=== PATIENT | female | born 1980 | race Caucasian/White ===

== ENCOUNTER 2017-06-30 12:51 | Outpatient (CLI) | payer OTHER ==
[~2017-06-30] VITALS: Ht 170.2 cm; Wt 122.5 kg
[~2017-06-30 12:51] MED LIST: CETI10TA PO; DICY1CAP8 PO; DRIS50002 PO; LEVO175T2 PO; OMEP20CA3 PO; SPIR50TA2 PO; TRINTAB3 PO; VITA500046 PO
[2017-06-30] MEDS ORDERED: NS 1,000 ML IV ONE (13:00)
[2017-06-30] MEDS ORDERED: PROPOFOL 200 MG/20 ML VIAL As Ordered ONE (14:05)
[2017-06-30] MEDS ORDERED: LIDOCAINE 2% INJ 100 MG/5 ML SDV (FOR ANES.) As Ordered ONE (14:05)
--- NOTE | 2017-06-30 14:13 | ROOR ---
Patient Name: Jyothi Munoz Procedure Date: 06/30/2017 1:50 PM Date of : 1980 Age: 36 Room: [facility] Gender: Female Note Status: Finalized Procedure: Colonoscopy Indications: Abdominal pain in the left lower quadrant, Clinically significant diarrhea of unexplained origin Providers: DO Олег Cueva MD: Monik Franco Requesting Provider: Medicines: Propofol per Anesthesia Complications: No immediate complications. Procedure: Pre-Anesthesia Assessment: - Prior to the procedure, a History and Physical was performed, and patient medications and allergies were reviewed. The patient is competent. The risks and benefits of the procedure and the sedation options and risks were discussed with the patient. All questions were answered and informed consent was obtained. Patient identification and proposed procedure were verified by the physician, the nurse, the anesthesiologist and the registered diet technician in the endoscopy suite. Mental Status Examination: alert and oriented. Airway Examination: normal oropharyngeal airway and neck mobility. Respiratory Examination: clear to auscultation. CV Examination: normal. Prophylactic Antibiotics: The patient does not require prophylactic antibiotics. Prior Anticoagulants: The patient has taken no previous anticoagulant or antiplatelet agents. ASA Grade Assessment: II - A patient with mild systemic disease. After reviewing the risks and benefits, the patient was deemed in satisfactory condition to undergo the procedure. The anesthesia plan was to use monitored anesthesia care (MAC). Immediately prior to administration of medications, the patient was re-assessed for adequacy to receive sedatives. The heart rate, respiratory rate, oxygen saturations, blood pressure, adequacy of pulmonary ventilation, and response to care were monitored throughout the procedure. The physical status of the patient was re-assessed after the procedure. The Colonoscope was introduced through the anus and advanced to the cecum, identified by appendiceal orifice and ileocecal valve. The colonoscopy was performed without difficulty. The patient tolerated the procedure well. Findings: The entire examined colon appeared normal on direct and retroflexion views. Biopsies for histology were taken with a cold forceps from the sigmoid colon for evaluation of microscopic colitis. Impression: - The entire examined colon is normal on direct and retroflexion views. - No specimens collected. Recommendation: - Patient has a contact number available for emergencies. The signs and symptoms of potential delayed complications were discussed with the patient. Return to normal activities tomorrow. Written discharge instructions were provided to the patient. - Telephone my office for pathology results in 1 week. - Repeat colonoscopy at age 52 for screening purposes. James Whipple DO 06/30/2017 2:13:07 PM This report has been signed electronically. Number of Addenda: 0 Note Initiated On: 06/30/2017 1:50 PM Estimated Blood Loss: Estimated blood loss was minimal. Estimated blood loss was minimal.
[2017-06-30 14:49] VITALS: BP 136/83
== END 2017-06-30 14:51 | disposition home or self-care (01) ==
LOC: M OPP 12:51
PROVIDERS: ATTEND Surgery
DX: R10.32 Left lower quadrant pain (principal); R19.7 Diarrhea, unspecified; E03.9 Hypothyroidism, unspecified; R12 Heartburn; R11.10 Vomiting, unspecified; R63.0 Anorexia; K21.9 Gastro-esophageal reflux disease without esophagitis; E55.9 Vitamin D deficiency, unspecified; Z88.2 Allergy status to sulfonamides; Z79.899 Other long term (current) drug therapy; Z80.1 Family history of malignant neoplasm of trachea, bronchus and lung

== ENCOUNTER 2018-04-16 09:20 | Emergency (ER) | payer OTHER ==
[2018-04-16 12:06] LABS: HCG, SERUM QUANTITATIVE 2627 MIU/ML
[2018-04-16] MEDS: METHOTREXATE 50MG/2ML VIAL (J9260 PER 50MG) IM (14:04)
== END 2018-04-16 15:13 | disposition home or self-care (01) ==
LOC: M ED 09:20
DX: O00.91 Unspecified ectopic pregnancy with intrauterine pregnancy (principal); O99.280 Endocrine, nutritional and metabolic diseases complicating pregnancy, unspecified trimester; E03.9 Hypothyroidism, unspecified; O99.210 Obesity complicating pregnancy, unspecified trimester; Z3A.00 Weeks of gestation of pregnancy not specified; Z87.42 Personal history of other diseases of the female genital tract; Z98.890 Other specified postprocedural states; Z88.1 Allergy status to other antibiotic agents; Z88.2 Allergy status to sulfonamides
CPT/HCPCS: J9260

== ENCOUNTER → 2021-03-10 | Outpatient (REF) | payer BC ==
[~2021-03-10] MED LIST changes: -DRIS50002 PO; +DRIS50003 PO; +OMEP1CAP73 PO; -OMEP20CA3 PO; -SPIR50TA2 PO; +SPIR50TA4 PO; +TRINTAB PO; -TRINTAB3 PO
== END ==
LOC: M PLALAB 08:34
PROVIDERS: ATTEND Obstetrics & Gynecology
DX: O99.211 Obesity complicating pregnancy, first trimester (principal)

== ENCOUNTER → 2021-03-13 | Outpatient (CLI) | payer BC ==
[2021-03-13 10:28] LABS: HEMOGLOBIN 12.4 g/dl (12.0-15.5); MEAN CORPUSCULAR HEMOGLOBIN 24.7 pg (27.0-33.0); MEAN CORPUSCULAR VOLUME 79.7 fl (80.0-96.0); PLATELET COUNT, AUTOMATED 237 10^3/uL (150-450); RED BLOOD COUNT 5.02 10^6/uL (4.00-5.40); WHITE BLOOD COUNT 7.5 10^3/uL (4.0-10.0)
[2021-03-13 12:05] LABS: CHLAMYDIA DNA AMPLIFICATION NEGATIVE (NEGATIVE); GC DNA AMPLIFICATION NEGATIVE (NEGATIVE)
[2021-03-13 13:16] LABS: HEPATITIS C VIRUS ABY INDEX < 0.0 INDEX (<0.8)
[2021-03-14 10:48] LABS: HIV 1&2 SCREEN CENTAUR NEGATIVE (NEGATIVE)
== END ==
LOC: M PLALAB 08:03
PROVIDERS: ATTEND Obstetrics & Gynecology
DX: O99.211 Obesity complicating pregnancy, first trimester (principal)

== ENCOUNTER → 2021-04-16 | Outpatient (CLI) | payer MEDICAID ==
--- NOTE | 2021-04-16 10:49 | REP ---
INDICATION: ANATOMY COMPARISON: None. TECHNIQUE: Transabdominal obstetrical ultrasound with color Doppler evaluation. FINDINGS: Examination demonstrates a single live intrauterine in cephalic presentation. motion is identified by technologist. Placenta is noted anterior and grade 1 without evidence for placenta previa or abruption. Amniotic fluid volume is normal. Cervix measures 3.3 cm in length and appears closed.. Gestational age by current measurements 18 weeks 5 days with ADAM 09/12/2021. FHR equals 146 beats per minute. Estimated weight 234 grams (24thpercentile). Anatomical assessment demonstrates normal structures including cranium, choroid plexus, cavum, lungs, four-chamber heart/ventricular outflow tracts, diaphragm, stomach, cord insertion/three-vessel cord, kidneys/bladder, and extremities. IMPRESSION: Single live intrauterine in cephalic presentation. Limited evaluation of the cerebral ventricles, posterior fossa, facial features and spine due to positioning. <Electronically signed by Can Hastings > 04/16/21 [id number]
== END ==
LOC: M WHC 08:36
PROVIDERS: ATTEND Obstetrics & Gynecology
DX: Z36.9 Encounter for antenatal screening, unspecified (principal); Z3A.18 18 weeks gestation of pregnancy

== ENCOUNTER → 2021-05-14 | Outpatient (CLI) | payer MEDICAID | LOC: M PLALAB 08:54 | PROVIDERS: ATTEND Advanced Practice Midwife | DX: Z13.79 Encounter for other screening for genetic and chromosomal anomalies (principal) ==

== ENCOUNTER 2021-05-19 17:16 | Outpatient (CLI) | payer MEDICAID ==
[2021-05-19] VITALS (8 sets, daily range): BP systolic 103–147; BP diastolic 50–67
[~2021-05-19] VITALS: Ht 170.2 cm; Wt 123.5 kg
[2021-05-19] MEDS ORDERED: PRENTAB9 PO (17:29)
[2021-05-19] MEDS ORDERED: ACETAMINOPHEN 500 MG TAB PO PRN (18:00)
[2021-05-19 18:18] LABS: APPEARANCE, URINE TURBID (CLEAR); BACTERIA, URINE AUTO 3+ (NEGATIVE); BILIRUBIN, URINE AUTO NEGATIVE (NEGATIVE); BLOOD, URINE BLOOD NEGATIVE (NEGATIVE); COLOR, URINE YELLOW (YELLOW); GLUCOSE, URINE (UA) AUTO NEGATIVE (NEGATIVE); KETONE, URINE AUTO TRACE mg/dL (NEGATIVE); LEUKOCYTE ESTERASE, URINE AUTO 2+ (NEGATIVE); MUCUS, URINE LARGE (NEGATIVE); NITRITE, URINE AUTO NEGATIVE (NEGATIVE); PROTEIN, URINE AUTO 2+ mg/dL (NEGATIVE); RBC, URINE AUTO 2 /HPF (0-3); SPECIFIC GRAVITY URINE AUTO 1.026 (1.002-1.035); SQUAMOUS EPITHELIAL CELL UR AU 5 /HPF (0-6); WBC, URINE AUTO TNTC /HPF (0-3)
--- NOTE | 2021-05-19 19:24 | IPNPDOC ---
Text Note Date of Service The patient was seen on 05/19/21. NOTE Subjective: Jyothi is a 40, year old female who is a at 23.1 weeks gestation with an ADAM of 09/14/21 based off of her LMP and consistent with her first trimester ultrasound. Her has been complicated by her being advanced maternal age and obesity. She presents to L&D with complaints of yellow discharge that started last week. Denies vaginal itching or vaginal odor. Reports she came in today because she had some cramping. Cramping was irregular and reports it isn't happening now. OB HX: SAB at 6 weeks gestation in 2018 Medical history: obesity Surgical Hx: colonoscopy, left cystectomy Family history: mother with HTN, hypercholesterol, thyroid issues and a carcinoid tumor Social Hx: single, denies being a smoker, denies history of abuse, denies alcohol or drug use or abuse. Objective: VS and labs: see below. FHR 160 [place]: no contractions noted General: Alert and oriented. Does not appear to be in any distress. Respiratory: Regular rate and rhythm. No use of accessory muscles. Abdomen: gravid, not tender to touch SSE: cervix appears thick and closed. Large amount of yellow discharge and mucus noted in the vaginal canal. Wet prep done showing large amount of yeast buds. Whiff test was negative. Bedside ultrasound shows IUP in cephalic presentation, FHR 158, placenta anterior, MARTY 10.58 cm, fetus active. Assessment: IUP at 23.1 weeks gestation; candidiasis of the vagina. Plan: Urine sent for UA and culture. Reviewed that patient is dehydrated and encouraged increased fluid intake. Reviewed diagnosis of yeast infection. Patient discharged to home and encouraged to cancel 's appointment. She has an OB appointment scheduled in May. Reviewed access to care, kick count, labor signs and danger signs to report. VS,Fishbone, I+O VS, Fishbone, I+O Vital Signs Date Time Temp Pulse Resp B/P (MAP) Pulse Ox O2 Delivery O2 Flow Rate FiO2 05/19/21 18:40 86 18 106/54 (71) 05/19/21 17:39 98.2 Item Value Date Time Urine Color YELLOW 05/19/21 175 Urine Appearance TURBID H 05/19/21 175 Urine pH 5.0 UNITS 05/19/211755 Urine Specific [place] 1.026 05/19/21 175 Urine Protein 2+ mg/dL H 05/19/21 175 Urine Glucose (Auto)(UA) NEGATIVE mg/dL 05/19/211755 Urine Ketones (Auto) TRACE mg/dL H 05/19/21 175 Urine Blood NEGATIVE 05/19/21 175 Urine Nitrite NEGATIVE 05/19/211755 Urine Bilirubin NEGATIVE 05/19/211755 Urine Urobilinogen 2.0 mg/dL H 05/19/21 175 Urine Leukocyte Esterase (Auto) 2+ H 05/19/21 175 Urine WBC (Auto) TNTC /HPF H 05/19/21 175 Urine RBC (Auto) 2 /HPF 05/19/211755 Urine Hyaline Casts (Auto) 0 /LPF 05/19/211755 Urine Bacteria (Auto) 3+ H 05/19/211755 Urine Squamous Epithelial Cells 5 /HPF 05/19/211755 Urine Mucus (Auto) LARGE 05/19/21 175 SARAH MULLINS CNM May 19, 2021 19:24
[2021-05-19] MEDS ORDERED: FLUCONAZOLE 50MG TABLET PO ONE (19:45)
== END 2021-05-19 20:01 | disposition home or self-care (01) ==
LOC: M LDO 17:16
PROVIDERS: ATTEND Advanced Practice Midwife
DX: O26.892 Other specified pregnancy related conditions, second trimester (principal); Z3A.23 23 weeks gestation of pregnancy; O09.512 Supervision of elderly primigravida, second trimester; O99.213 Obesity complicating pregnancy, third trimester; E66.9 Obesity, unspecified; N89.8 Other specified noninflammatory disorders of vagina; Z88.2 Allergy status to sulfonamides

== ENCOUNTER 2021-05-20 02:01 | Outpatient (CLI) | payer MEDICAID ==
[~2021-05-20] VITALS: Ht 170.2 cm; Wt 123.0 kg
[~2021-05-20 02:01] MED LIST changes: +PRENTAB9 PO
[2021-05-20] MEDS ORDERED: LR 1,000 ML IV SCH (02:15)
[2021-05-20] MEDS ORDERED: LACTATED RINGER'S 1000 ML IV ONE (02:15)
[2021-05-20 02:17] VITALS: BP 103/58
[2021-05-20] MEDS ORDERED: BETAMETHASONE SOLUSPAN 6MG/ML 5ML VIAL (J0702 PER 3MG) IM SCH (02:30)
[2021-05-20] MEDS ORDERED: INDOMETHACIN 25 MG CAP PO ONE (02:35)
--- NOTE | 2021-05-20 02:53 | IPNPDOC ---
Text Note Date of Service The patient was seen on 05/20/21. NOTE Subjective: Jyothi is a 40, year old female who is a at 23.2 weeks gestation with an ADAM of 09/14/21 based off of her LMP and consistent with her first trimester ultrasound. Her has been complicated by her being advanced maternal age and obesity. She was seen yesterday with complaints of yellow discharge that had been occurring since last week. She denied contraction, cramping, fever, vaginal itching, vaginal odor, pain with intercourse at that time. Moderate amount of discharge noted and patient was treated for a yeast infection. She returned tonight with complaints of cramping in her back and lower abdominal pain that started about 11 pm. She denied leaking of fluid but reports a spot of pink blood when she wiped. She reports active movement. Pain is a 7-8/10. OB HX: SAB at 6 weeks gestation in 2018 Medical history: obesity Surgical Hx: colonoscopy, left cystectomy Family history: mother with HTN, hypercholesterol, thyroid issues and a carcinoid tumor Social Hx: single, denies being a smoker, denies history of abuse, denies alcohol or drug use or abuse. Denies history of STD. Objective: FHR: 150-strip appropriate for gestational age. [place]: Contractions every 2 minutes lasting 15-20 seconds General: Alert and oriented. Appears to be uncomfortable; grimacing. Respiratory: Breathing through her pain Abdomen: gravid; soft and not tender to touch. Abdomen is morbidly obese. SSE: cervix appears thinner and open with thick yellow discharge with bloody show noted in the cervical os. Yesterday it was closed. SCE: 1.5 cm/75% effaced, cephalic. US tech report states cervical length is 0.5 cm and EFW is 682 grams, cephalic presentation, normal fluid, placenta appears normal. Assessment: IUP at 23.2 weeks gestation, labor Plan: Reported findings to Dr. Rogers and plan collaborated. -Start IV with bolus of LR then at 125 cc/her -Send CBC with Diff. -GBS obtained and sent -Indocin now 100 mg and again in 6 hours if needed -PCN G to be started. -Betamethasone IM injection now and again in 24 hours -US for cervical length, evaluate placenta and growth -Urine culture was sent yesterday -ROBBI titers ordered due to elevated WBC -Blood cultures ordered -Genital culture sent yesterday -CT/GC/Trich sent by urine -Morphine ordered for pain management - Center consult once all information is available. Dr. Martinez accepted transport and ambulance service was notified. SARAH MULLINS CNM May 20, 2021 02:53
[2021-05-20 02:56] LABS: BASO % 0.2 % (0.0-1.0); EOS # 0.1 10^3/uL (0.0-0.5); EOS % 0.4 % (0.0-3.0); HEMATOCRIT 34.9 % (36.0-47.0); HEMOGLOBIN 11.4 g/dl (12.0-15.5); LYMPH # 1.1 10^3/uL (1.5-5.0); LYMPH % 5.8 % (24.0-44.0); MEAN CORPUSCULAR HEMOGLOBIN 26.1 pg (27.0-33.0); MEAN CORPUSCULAR HGB CONC 32.7 g/dl (32.0-36.5); MEAN CORPUSCULAR VOLUME 79.9 fl (80.0-96.0); MONO % 5.4 % (2.0-8.0); NEUTROPHILS # 15.8 10^3/uL (1.5-8.5); NEUTROPHILS % 87.4 % (36.0-66.0); PLATELET COUNT, AUTOMATED 220 10^3/uL (150-450); RED BLOOD COUNT 4.37 10^6/uL (4.00-5.40); WHITE BLOOD COUNT 18.1 10^3/uL (4.0-10.0)
[2021-05-20] MEDS ORDERED: PENICILLIN G POTASSIUM IV 5 MU in D5W MINI-BAG PLUS 100 ML IV STA (03:14)
[2021-05-20] MEDS ORDERED: MORPHINE 4 MG/ML 1ML VIAL/SYRINGE (J2270) IV PRN (03:30)
[2021-05-20] MEDS ORDERED: MAGNESIUM *L&D* 4GM/100ML BAG (40MG/ML) IV ONE (04:10)
[2021-05-20] MEDS ORDERED: MAG Sulf (OBGYN) 20GM/500ML 20,000 MG in IV 1 EA IV SCH (04:10)
[2021-05-20] MEDS ORDERED: CALCIUM GLUCONATE 1,000 MG in D5W MINI-BAG PLUS 100 ML IV SCH (04:35)
[2021-05-20 04:53] LABS: GC DNA AMPLIFICATION NEGATIVE (NEGATIVE)
[2021-05-20] MEDS ORDERED: PENICILLIN G POTASSIUM IV 2.5 MU in IV 1 EA IV SCH (08:00)
--- NOTE | 2021-05-20 08:41 | REP ---
INDICATION: growth and evaluate placenta. Repeat dictation. Preliminary report is provided at the time of the exam by melissa GASTELUM. COMPARISON: Comparison study May 08, 2021.. TECHNIQUE: Transabdominal and transvaginal obstetric sonography. FINDINGS: Scanning through the gravid uterus demonstrates a viable single intrauterine gestation in cephalic lie. motion is observed and heart rate is recorded at 162 beats per minute. A anterior placenta is seen, grade 1, without evidence of placenta previa. Closed cervical length is measured at 0.5 cm cm transvaginally, with some cervical funneling observed.. No extrauterine abnormality is observed. Amniotic fluid is subjectively normal. . Biometry chart: BPD 5.9 cm, 24 weeks 1 day Head circumference 21.7 cm, 23 weeks 5 days Abdominal circumference 19.3 cm, 24 weeks 0 days Femur length 4.5 cm, 24 weeks 6 days Humeral length 3.8 cm, 23 weeks 3 days HC AC ratio normal 1.12 Cephalic index normal 0.76 Estimated weight 682 g, 1 lb 8 oz, 57th percentile for 23 weeks 4 days IMPRESSION: Viable single intrauterine gestation at 24 weeks 0 days by today's composite sonographic criteria. ADAM by today's sonography 6 September 09, 2021. No complication identified. Expected gestational age estimate based on prior sonography 23 weeks 4 days ADAM by prior sonography September 12, 2021. There is shortening of the cervix, 0.5 cm, with funneling. <Electronically signed by Dane Seymour > 05/20/21 0837
[2021-05-21 20:26] LABS: CYTOMEGALOVIRUS IgG ANTIBODY <0.60 U/mL (0.00-0.59); CYTOMEGALOVIRUS IgM ANTIBODY <30.0 AU/mL (0.0-29.9); HSV IgM TYPES 1&2 <0.91 Ratio (0.00-0.90); HSV TYPE II IgG SPECIFIC <0.91 index (0.00-0.90); RUBELLA IgG FOR TORCH EVAL 1.76 index (Immune >0.99); RUBELLA IgM FOR TORCH EVAL <20.0 AU/mL (0.0-19.9); TOXOPLASMA IgG ABY <3.0 IU/mL (0.0-7.1)
== END 2021-05-20 05:26 | disposition other institution (70) ==
LOC: M LDO 02:01
PROVIDERS: ATTEND Advanced Practice Midwife
DX: O60.02 Preterm labor without delivery, second trimester (principal); Z3A.23 23 weeks gestation of pregnancy; O09.512 Supervision of elderly primigravida, second trimester; O99.212 Obesity complicating pregnancy, second trimester; E66.9 Obesity, unspecified; Z88.2 Allergy status to sulfonamides; Z79.899 Other long term (current) drug therapy
CPT/HCPCS: 36415; 76816; 76817; 85025; 86644; 86645; 86694; 86695; 86696; 86762; 86777; 86778; 86780; 87040; 87081; 87186; 87491; 87591; 87661; 96361; 96365; 96366; 96367; 96372; J0702; J2270; J3475; U0002

== ENCOUNTER → 2022-02-09 | Outpatient (CLI) | payer MEDICAID, OTHER ==
[~2022-02-09] MED LIST changes: +REGL10TA6 PO
== END ==
LOC: M PLALAB 10:38
PROVIDERS: ATTEND Advanced Practice Midwife
DX: Z87.59 Personal history of other complications of pregnancy, childbirth and the puerperium (principal)

== ENCOUNTER 2022-02-10 15:53 | Emergency (ER) | payer OTHER ==
[~2022-02-10] VITALS: Ht 170.2 cm; Wt 124.3 kg
[~2022-02-10 15:53] MED LIST changes: -REGL10TA6 PO
[2022-02-10 17:00] LABS: BASO % 0.2 % (0.0-1.0); EOS % 0.3 % (0.0-3.0); HEMATOCRIT 39.9 % (36.0-47.0); HEMOGLOBIN 12.5 g/dl (12.0-15.5); LYMPH # 1.4 10^3/uL (1.5-5.0); MEAN CORPUSCULAR HEMOGLOBIN 24.4 pg (27.0-33.0); MEAN CORPUSCULAR HGB CONC 31.3 g/dl (32.0-36.5); MEAN CORPUSCULAR VOLUME 77.8 fl (80.0-96.0); MONO # 0.5 10^3/uL (0.0-0.8); MONO % 4.9 % (2.0-8.0); NEUTROPHILS # 7.6 10^3/uL (1.5-8.5); NEUTROPHILS % 79.2 % (36.0-66.0); RED BLOOD COUNT 5.13 10^6/uL (4.00-5.40); WHITE BLOOD COUNT 9.6 10^3/uL (4.0-10.0)
[2022-02-10 17:17] LABS: PLATELET COUNT, AUTOMATED 229 10^3/uL (150-450)
[2022-02-10 17:37] LABS: BLOOD UREA NITROGEN 8 MG/DL (7-18); CALCIUM LEVEL 9.2 MG/DL (8.5-10.1); CARBON DIOXIDE LEVEL 28 MEQ/L (21-32); CHLORIDE LEVEL 103 MEQ/L (98-107); GLOMERULAR FILTRATION RATE > 60.0 (>60); GLUCOSE, FASTING 79 MG/DL (70-100); HCG, SERUM QUANTITATIVE 74615 MIU/ML; POTASSIUM SERUM 4.1 MEQ/L (3.5-5.1); SODIUM LEVEL 137 MEQ/L (136-145)
[2022-02-10] MEDS ORDERED: REGL10TA6 PO (19:36)
[2022-02-10 19:50] VITALS: BP 120/72
== END 2022-02-10 19:52 | disposition home or self-care (01) ==
LOC: M ED 15:53
DX: O21.9 Vomiting of pregnancy, unspecified (principal); O34.81 Maternal care for other abnormalities of pelvic organs, first trimester; Z3A.01 Less than 8 weeks gestation of pregnancy; Z87.59 Personal history of other complications of pregnancy, childbirth and the puerperium; Z88.2 Allergy status to sulfonamides; Z79.899 Other long term (current) drug therapy

== ENCOUNTER 2022-02-23 16:56 | Emergency (ER) | payer OTHER ==
[~2022-02-23] VITALS: Ht 170.2 cm; Wt 121.9 kg
[~2022-02-23 16:56] MED LIST changes: +REGL10TA6 PO
[2022-02-23] MEDS ORDERED: METO5TAB2 (17:34)
[2022-02-23] MEDS ORDERED: NS 1,000 ML IV ONE (21:50)
[2022-02-23 22:09] LABS: BASO % 0.2 % (0.0-1.0); EOS % 0.4 % (0.0-3.0); HEMATOCRIT 40.3 % (36.0-47.0); HEMOGLOBIN 13.1 g/dl (12.0-15.5); LYMPH # 1.6 10^3/uL (1.5-5.0); MEAN CORPUSCULAR HEMOGLOBIN 25.1 pg (27.0-33.0); MEAN CORPUSCULAR HGB CONC 32.5 g/dl (32.0-36.5); MEAN CORPUSCULAR VOLUME 77.2 fl (80.0-96.0); MONO # 0.6 10^3/uL (0.0-0.8); MONO % 7.1 % (2.0-8.0); NEUTROPHILS % 73.1 % (36.0-66.0); PLATELET COUNT, AUTOMATED 248 10^3/uL (150-450); RED BLOOD COUNT 5.22 10^6/uL (4.00-5.40); WHITE BLOOD COUNT 8.2 10^3/uL (4.0-10.0)
[2022-02-23 22:30] LABS: APPEARANCE, URINE CLOUDY (CLEAR); BACTERIA, URINE AUTO NEGATIVE (NEGATIVE); BILIRUBIN, URINE AUTO 1+ (NEGATIVE); BLOOD, URINE BLOOD NEGATIVE (NEGATIVE); COLOR, URINE AMBER (YELLOW); GLUCOSE, URINE (UA) AUTO NEGATIVE (NEGATIVE); KETONE, URINE AUTO 2+ mg/dL (NEGATIVE); LEUKOCYTE ESTERASE, URINE AUTO 2+ (NEGATIVE); MUCUS, URINE LARGE (NEGATIVE); NITRITE, URINE AUTO NEGATIVE (NEGATIVE); PROTEIN, URINE AUTO 2+ mg/dL (NEGATIVE); RBC, URINE AUTO 7 /HPF (0-3); SPECIFIC GRAVITY URINE AUTO 1.029 (1.002-1.035); SQUAMOUS EPITHELIAL CELL UR AU 38 /HPF (0-6); WBC, URINE AUTO 23 /HPF (0-3)
[2022-02-23 22:50] LABS: RSV AMPLIFICATION NEGATIVE (NEGATIVE)
[2022-02-23 23:31] LABS: ALBUMIN 3.4 GM/DL (3.2-5.2); ALT/SGPT 34 U/L (12-78); BILIRUBIN,TOTAL 0.4 MG/DL (0.2-1.0); BLOOD UREA NITROGEN 6 MG/DL (7-18); CARBON DIOXIDE LEVEL 25 MEQ/L (21-32); CHLORIDE LEVEL 102 MEQ/L (98-107); CREATININE FOR GFR 0.56 MG/DL (0.55-1.30); GLOMERULAR FILTRATION RATE > 60.0 (>60); GLUCOSE, FASTING 74 MG/DL (70-100); HCG, SERUM QUANTITATIVE 100965 MIU/ML; POTASSIUM SERUM 3.8 MEQ/L (3.5-5.1); SODIUM LEVEL 135 MEQ/L (136-145); TOTAL PROTEIN 6.7 GM/DL (6.4-8.2)
[2022-02-24 00:22] LABS: GC DNA AMPLIFICATION NEGATIVE (NEGATIVE)
[2022-02-24 01:09] VITALS: BP 107/49
== END 2022-02-24 01:25 | disposition home or self-care (01) ==
LOC: M ED 16:56
DX: O26.899 Other specified pregnancy related conditions, unspecified trimester (principal); Z3A.09 9 weeks gestation of pregnancy; R10.9 Unspecified abdominal pain; Z88.1 Allergy status to other antibiotic agents; Z88.2 Allergy status to sulfonamides

== ENCOUNTER → 2022-04-03 | Outpatient (CLI) | payer OTHER ==
[~2022-04-03] MED LIST changes: +METO5TAB2
== END ==
LOC: M WHC 09:48
PROVIDERS: ATTEND Advanced Practice Midwife
DX: Z36.9 Encounter for antenatal screening, unspecified (principal); O09.891 Supervision of other high risk pregnancies, first trimester

== ENCOUNTER → 2022-04-13 | Outpatient (CLI) | payer OTHER, MEDICAID ==
[2022-04-13 15:31] LABS: BASO % 0.5 % (0.0-1.0); EOS # 0.1 10^3/uL (0.0-0.5); EOS % 0.7 % (0.0-3.0); HEMATOCRIT 41.6 % (36.0-47.0); HEMOGLOBIN 13.2 g/dl (12.0-15.5); LYMPH # 1.6 10^3/uL (1.5-5.0); LYMPH % 18.8 % (24.0-44.0); MEAN CORPUSCULAR HGB CONC 31.7 g/dl (32.0-36.5); MEAN CORPUSCULAR VOLUME 78.8 fl (80.0-96.0); MONO # 0.5 10^3/uL (0.0-0.8); MONO % 5.9 % (2.0-8.0); NEUTROPHILS # 6.3 10^3/uL (1.5-8.5); NEUTROPHILS % 73.9 % (36.0-66.0); RED BLOOD COUNT 5.28 10^6/uL (4.00-5.40); WHITE BLOOD COUNT 8.5 10^3/uL (4.0-10.0)
[2022-04-13 16:41] LABS: HEPATITIS C VIRUS ABY INDEX 0.1 INDEX (<0.8); HIV 1&2 SCREEN CENTAUR NEGATIVE (NEGATIVE)
[2022-04-13 21:12] LABS: GC DNA AMPLIFICATION NEGATIVE (NEGATIVE)
== END ==
LOC: M PLALAB 12:39
PROVIDERS: ATTEND Advanced Practice Midwife
DX: O09.521 Supervision of elderly multigravida, first trimester (principal)

== ENCOUNTER → 2022-05-11 | Outpatient (CLI) | payer MEDICAID, OTHER | LOC: M WHC 13:55 | PROVIDERS: ATTEND Advanced Practice Midwife | DX: O09.892 Supervision of other high risk pregnancies, second trimester (principal); Z3A.21 21 weeks gestation of pregnancy ==

== ENCOUNTER → 2022-05-15 | Outpatient (CLI) | payer OTHER | LOC: M WHC 12:28 | PROVIDERS: ATTEND Advanced Practice Midwife | DX: Z36.2 Encounter for other antenatal screening follow-up (principal); Z53.8 Procedure and treatment not carried out for other reasons ==

== ENCOUNTER → 2022-05-26 | Outpatient (CLI) | payer OTHER | LOC: M WHC 08:07 | PROVIDERS: ATTEND Advanced Practice Midwife | DX: O99.212 Obesity complicating pregnancy, second trimester (principal); O09.892 Supervision of other high risk pregnancies, second trimester; Z36.2 Encounter for other antenatal screening follow-up; Z3A.23 23 weeks gestation of pregnancy ==

== ENCOUNTER → 2022-06-09 | Outpatient (CLI) | payer OTHER | LOC: M WHC 08:01 | PROVIDERS: ATTEND Advanced Practice Midwife | DX: O09.892 Supervision of other high risk pregnancies, second trimester (principal); Z3A.00 Weeks of gestation of pregnancy not specified ==

== ENCOUNTER → 2022-07-01 | Outpatient (CLI) | payer MEDICAID, OTHER ==
[2022-07-01 14:14] LABS: HEMOGLOBIN 10.9 g/dl (12.0-15.5); MEAN CORPUSCULAR HEMOGLOBIN 26.7 pg (27.0-33.0); MEAN CORPUSCULAR HGB CONC 31.1 g/dl (32.0-36.5); MEAN CORPUSCULAR VOLUME 85.6 fl (80.0-96.0); PLATELET COUNT, AUTOMATED 231 10^3/uL (150-450); RED BLOOD COUNT 4.09 10^6/uL (4.00-5.40)
[2022-07-01 16:31] LABS: GC DNA AMPLIFICATION NEGATIVE (NEGATIVE)
== END ==
LOC: M PLALAB 08:38
PROVIDERS: ATTEND Advanced Practice Midwife
DX: O09.892 Supervision of other high risk pregnancies, second trimester (principal)
CPT/HCPCS: 36415; 82950; 85027; 86850; 86900; 86901; 87810; 87850; J2790

== ENCOUNTER 2022-07-07 09:46 | Outpatient (CLI) | payer OTHER ==
[~2022-07-07] VITALS: Ht 170.2 cm; Wt 123.8 kg
[~2022-07-07 09:46] MED LIST changes: -MAKE250I IM; -PROG1CAP8 PV
[2022-07-07 10:03] VITALS: BP 144/65
[2022-07-07] MEDS ORDERED: HOME MED LIST COMPLETE! XX SCH (10:10)
[2022-07-07] MEDS ORDERED: BETAMETHASONE SOLUSPAN 6MG/ML 5ML VIAL (J0702 PER 3MG) IM SCH (11:00)
[2022-07-07 11:23] VITALS: BP 113/56
[2022-07-08] MEDS ORDERED: MAKE250I IM (11:18)
[2022-07-08] MEDS ORDERED: PROG1CAP8 PV (11:18)
== END 2022-07-07 11:55 | disposition home or self-care (01) ==
LOC: M LDO 09:46
PROVIDERS: ATTEND Obstetrics & Gynecology
DX: O26.873 Cervical shortening, third trimester (principal); O09.513 Supervision of elderly primigravida, third trimester; Z87.51 Personal history of pre-term labor; Z3A.28 28 weeks gestation of pregnancy
CPT/HCPCS: 59025; 96372; J0702

== ENCOUNTER → 2022-07-07 | Outpatient (CLI) | payer OTHER ==
[~2022-07-07] MED LIST changes: +MAKE250I IM; +PROG1CAP8 PV
== END ==
LOC: M WHC 08:06
PROVIDERS: ATTEND Advanced Practice Midwife
DX: Z36.2 Encounter for other antenatal screening follow-up (principal); Z3A.28 28 weeks gestation of pregnancy

== ENCOUNTER 2022-07-08 11:01 | Outpatient (CLI) | payer OTHER ==
[~2022-07-08] VITALS: Ht 170.2 cm; Wt 123.9 kg
[2022-07-08 11:16] VITALS: BP 122/62
[2022-07-08] MEDS ORDERED: PROG1CAP8 PV (11:18)
[2022-07-08] MEDS ORDERED: MAKE250I IM (11:18)
[2022-07-08] MEDS ORDERED: HOME MED LIST COMPLETE! XX SCH (11:20)
[2022-07-08] MEDS ORDERED: BETAMETHASONE SOLUSPAN 6MG/ML 5ML VIAL (J0702 PER 3MG) IM ONE (11:40)
[2022-07-08 12:04] VITALS: BP 121/58
== END 2022-07-08 12:06 | disposition home or self-care (01) ==
LOC: M LDO 11:01
PROVIDERS: ATTEND Advanced Practice Midwife
DX: O26.873 Cervical shortening, third trimester (principal); O09.212 Supervision of pregnancy with history of pre-term labor, second trimester; O32.1XX9 Maternal care for breech presentation, other fetus; O09.513 Supervision of elderly primigravida, third trimester; Z86.16 Personal history of COVID-19; Z3A.38 38 weeks gestation of pregnancy
CPT/HCPCS: 59025; 96372; J0702

== ENCOUNTER → 2022-08-07 | Outpatient (REF) | payer OTHER, MEDICAID ==
[~2022-08-07] MED LIST changes: +MAKE250I IM; +PROG1CAP8 PV
== END ==
LOC: M SFHCWAGY 16:43
PROVIDERS: ATTEND Advanced Practice Midwife
DX: O09.893 Supervision of other high risk pregnancies, third trimester (principal)

== ENCOUNTER → 2022-08-18 | Outpatient (CLI) | payer OTHER | LOC: M WHC 07:29 | PROVIDERS: ATTEND Advanced Practice Midwife | DX: O09.893 Supervision of other high risk pregnancies, third trimester (principal); O26.873 Cervical shortening, third trimester ==

== ENCOUNTER 2022-09-21 09:33 | Inpatient (IN) | payer OTHER, MEDICAID ==
[~2022-09-21] VITALS: Ht 170.2 cm; Wt 129.2 kg
[2022-09-21] VITALS (44 sets, daily range): BP systolic 99–188; BP diastolic 52–84
[2022-09-21] MEDS ORDERED: HOME MED LIST COMPLETE! XX SCH (10:10)
[2022-09-21] MEDS ORDERED: CARBOPROST TROMETHAMINE 250 MCG/ML AMP IM PRN (10:35)
[2022-09-21] MEDS ORDERED: LIDOCAINE 1% MDV 20ML VIAL INFIL PRN (10:35)
[2022-09-21] MEDS ORDERED: OXYTOCIN DRIP 30 UNITS in IV 1 EA IV PRN (10:35)
[2022-09-21] MEDS ORDERED: METHYLERGONOVINE MALEATE 0.2 MG/ML VIAL (J2210) IM PRN (10:35)
[2022-09-21] MEDS ORDERED: OXYTOCIN INJ 10 UNITS/ML VIAL (J2590) IM PRN (10:35)
[2022-09-21] MEDS ORDERED: TRANEXAMIC ACID INJection 1,000 MG in NS 100 ML IV PRN (10:35)
[2022-09-21 11:00] LABS: HEMOGLOBIN 10.6 g/dl (12.0-15.5); MEAN CORPUSCULAR HEMOGLOBIN 24.4 pg (27.0-33.0); MEAN CORPUSCULAR HGB CONC 31.2 g/dl (32.0-36.5); MEAN CORPUSCULAR VOLUME 78.3 fl (80.0-96.0); PLATELET COUNT, AUTOMATED 234 10^3/uL (150-450); RED BLOOD COUNT 4.34 10^6/uL (4.00-5.40); WHITE BLOOD COUNT 9.9 10^3/uL (4.0-10.0)
[2022-09-21] MEDS ORDERED: OXYTOCIN DRIP 30 UNITS in IV 1 EA IV SCH (11:25)
[2022-09-21] MEDS: LR 1,000 ML IV SCH ×2 (13:26→18:18)
[2022-09-21 15:23] LABS: ALT/SGPT 18 U/L (12-78); BILIRUBIN,TOTAL 0.3 MG/DL (0.2-1.0); CREATININE FOR GFR 0.53 MG/DL (0.55-1.30); GLOMERULAR FILTRATION RATE > 60.0 (>58); LDH LACTATE DEHYDROGENASE 194 U/L (84-246); URIC ACID 3.9 MG/DL (2.6-6.0)
[2022-09-21 16:12] LABS: TOTAL PROTEIN,RANDOM URINE 11.9 MG/DL (0.0-12.0)
[2022-09-21] MEDS ORDERED: PROMETHAZINE 25MG/ML 1ML VIAL IV ONE (17:45)
[2022-09-21] MEDS ORDERED: BUTORPHANOL 2 MG/ML INJ (J0595) IV ONE (17:45)
[2022-09-21] MEDS ORDERED: EPIDURAL/PCA KEYS XX PRN (18:25)
[2022-09-21] MEDS ORDERED: ePHEDrine SULFATE 25 MG/5 ML(5MG/ML) SYRINGE IVP PRN (18:25)
[2022-09-21] MEDS ORDERED: diphenhydrAMINE 50MG/ML VIAL IV PRN (18:25)
[2022-09-21] MEDS ORDERED: LR 500 ML IV PRN (18:25)
[2022-09-21] MEDS ORDERED: FENTANYL/ROPIVACAINE/NACL BAG 100 ML EPIDURAL SCH (18:25)
[2022-09-21] MEDS ORDERED: ONDANSETRON 4MG 2ML VIAL IV PRN (18:25)
[2022-09-21] MEDS ORDERED: NALOXONE INJ 0.4MG/1ML VIAL (J2310 PER 1MG) IV PRN (18:25)
[2022-09-21] MEDS ORDERED: FENTANYL 2MCG/ML ROPIVACAINE 0.2% IN 0.9% NACL 100ML IVBAG As Ordered ONE (18:31)
[2022-09-22] VITALS (8 sets, daily range): BP systolic 93–149; BP diastolic 52–69
[2022-09-22] MEDS ORDERED: ANUSOL HC CREAM 30GM TOP PRN (01:00)
[2022-09-22] MEDS ORDERED: IBUPROFEN 800 MG TAB PO PRN (01:00)
[2022-09-22] MEDS ORDERED: DOCUSATE SODIUM 100MG CAPSULE PO PRN (01:00)
[2022-09-22] MEDS ORDERED: DIBUCAINE 1% OINTMENT 30GM TOP PRN (01:00)
[2022-09-22] MEDS ORDERED: ACETAMINOPHEN 500 MG TAB PO PRN (01:00)
[2022-09-22] MEDS ORDERED: MOM 30ML SUSPENSION UDC PO PRN (01:00)
[2022-09-22] MEDS ORDERED: RHOGAM 300 MCG (1500 IU) INJ (J2790) IM SCH (01:00)
[2022-09-22] MEDS ORDERED: IBUPROFEN 600MG TAB PO PRN (01:00)
[2022-09-22] MEDS ORDERED: ACETAMINOPHEN TAB 650MG DOSE (2X325MG) PO PRN (01:00)
[2022-09-22] MEDS: PRENATAL VITAMINS CHEWABLE TABLET PO SCH (08:09)
[2022-09-23 06:00] VITALS: BP 123/60
[2022-09-23] MEDS: PRENATAL VITAMINS CHEWABLE TABLET PO SCH (09:05)
[2022-09-24] MEDS ORDERED: INFLUENZA QUADRIVALENT PF VACCINE 0.5ML SYRINGE IM.IMMUN ONE (09:00)
[2022-09-24] MEDS ORDERED: MEASLES,MUMPS,RUBELLA VACCINE INJ (MMR-II) (90707) SC.IMMUN ONE (09:00)
== END 2022-09-23 14:35 | disposition home or self-care (01) | DRG 560 ==
LOC: M LDI 09:33 → M OBS 09-22 03:23
PROVIDERS: ADMIT Advanced Practice Midwife; ATTEND Advanced Practice Midwife
PROC: 3E033VJ Introduction of Other Hormone into Peripheral Vein, Percutaneous Approach (ICD-10-PCS; 2022-09-21)
PROC: 10907ZC Drainage of Amniotic Fluid, Therapeutic from Products of Conception, Via Natural or Artificial Opening (ICD-10-PCS; 2022-09-21)
PROC: 10E0XZZ Delivery of Products of Conception, External Approach (ICD-10-PCS; principal; 2022-09-22)
PROC: 0UQMXZZ Repair Vulva, External Approach (ICD-10-PCS; 2022-09-22)
DX: O13.4 Gestational [pregnancy-induced] hypertension without significant proteinuria, complicating childbirth (principal); O09.213 Supervision of pregnancy with history of pre-term labor, third trimester; O32.6XX0 Maternal care for compound presentation, not applicable or unspecified; O09.513 Supervision of elderly primigravida, third trimester; Z3A.39 39 weeks gestation of pregnancy; Z88.2 Allergy status to sulfonamides; O71.82 Other specified trauma to perineum and vulva; Z37.0 Single live birth; O34.43 Maternal care for other abnormalities of cervix, third trimester

== ENCOUNTER → 2022-12-14 | Outpatient (CLI) | payer MEDICAID, OTHER | LOC: M LABSMTC 11:53 | PROVIDERS: ATTEND Anesthesiology | DX: Z20.822 Contact with and (suspected) exposure to COVID-19 (principal) ==

== ENCOUNTER 2022-12-16 12:04 | Day surgery (SDC) | payer MEDICAID, OTHER ==
[~2022-12-16] VITALS: Ht 170.2 cm; Wt 131.5 kg
[2022-12-16] MEDS ORDERED: LR 1,000 ML IV SCH (12:35)
[2022-12-16 12:52] LABS: HEMATOCRIT 43.2 % (36.0-47.0); MEAN CORPUSCULAR HGB CONC 30.1 g/dl (32.0-36.5); MEAN CORPUSCULAR VOLUME 79.7 fl (80.0-96.0); PLATELET COUNT, AUTOMATED 359 10^3/uL (150-450); RED BLOOD COUNT 5.42 10^6/uL (4.00-5.40); WHITE BLOOD COUNT 9.1 10^3/uL (4.0-10.0)
[2022-12-16 13:24] LABS: HCG, SERUM QUALITATIVE NEGATIVE (NEGATIVE)
[2022-12-16] MEDS ORDERED: SUGAMMADEX SODIUM 500 MG/5 ML VIAL (BRIDION) As Ordered ONE (13:57)
[2022-12-16] MEDS ORDERED: propofoL 200 MG/20 ML VIAL As Ordered ONE (13:57)
[2022-12-16] MEDS ORDERED: KETOROLAC 60MG 2ML VIAL As Ordered ONE (13:57)
[2022-12-16] MEDS ORDERED: MIDAZOLAM INJ 2MG/2ML VIAL As Ordered ONE (13:57)
[2022-12-16] MEDS ORDERED: ONDANSETRON 4MG 2ML VIAL As Ordered ONE (13:57)
[2022-12-16] MEDS ORDERED: LIDOCAINE 2% 100MG/5ML SDV (FOR ANES.) As Ordered ONE (13:57)
[2022-12-16] MEDS ORDERED: ACETAMINOPHEN 1000MG 100ML IV BAG As Ordered ONE (13:57)
[2022-12-16] MEDS ORDERED: fentaNYL 100 MCG/2 ML INJECTION As Ordered ONE (13:57)
[2022-12-16] MEDS ORDERED: ROCURONIUM BROMIDE 50MG/5ML VIAL As Ordered ONE (13:57)
[2022-12-16] MEDS ORDERED: HYDROmorphone HCL 2MG/ML 1ML VIAL As Ordered ONE (14:09)
[2022-12-16] MEDS ORDERED: fentaNYL 100 MCG/2 ML INJECTION IV PRN (14:35)
[2022-12-16] MEDS ORDERED: oxyCODONE 5MG TAB PO PRN (14:35)
[2022-12-16] MEDS ORDERED: ONDANSETRON 4MG 2ML VIAL IV PRN (14:35)
[2022-12-16] MEDS ORDERED: IBUP80TA PO (14:46)
[2022-12-16] MEDS ORDERED: OXYC1TAB23 PO (14:47)
[2022-12-16] MEDS ORDERED: COLA100C5 PO (14:49)
[2022-12-16 16:40] VITALS: BP 139/74
== END 2022-12-16 16:46 | disposition home or self-care (01) ==
LOC: M SDC 12:04
PROVIDERS: ATTEND Obstetrics & Gynecology
DX: Z30.2 Encounter for sterilization (principal); E03.9 Hypothyroidism, unspecified; Z88.2 Allergy status to sulfonamides
CPT/HCPCS: 36415; 58661; 81025; 84703; 85027; 86850; 86900; 86901; 88302; J1100; J2405

== ENCOUNTER → 2023-05-07 | Outpatient (REF) | payer OTHER, MEDICAID ==
[~2023-05-07] MED LIST changes: +COLA100C5 PO; +IBUP80TA PO; +OXYC1TAB23 PO
== END ==
LOC: M PLALAB 08:12
PROVIDERS: ATTEND Advanced Practice Midwife
DX: Z12.4 Encounter for screening for malignant neoplasm of cervix (principal); R87.610 Atypical squamous cells of undetermined significance on cytologic smear of cervix (ASC-US)

== ENCOUNTER → 2023-05-07 | Outpatient (CLI) | payer OTHER, MEDICAID | LOC: M WHC 08:45 | PROVIDERS: ATTEND Advanced Practice Midwife | DX: Z12.31 Encounter for screening mammogram for malignant neoplasm of breast (principal) ==

== ENCOUNTER → 2023-06-02 | Outpatient (CLI) | payer OTHER | LOC: M WHC 11:33 | PROVIDERS: ATTEND Advanced Practice Midwife | DX: N91.1 Secondary amenorrhea (principal); N83.01 Follicular cyst of right ovary ==

== ENCOUNTER → 2023-06-02 | Outpatient (CLI) | payer OTHER ==
[2023-06-02 13:28] LABS: BASO # 0.1 10^3/uL (0.0-0.2); BASO % 0.7 % (0.0-1.0); EOS # 0.2 10^3/uL (0.0-0.5); EOS % 2.3 % (0.0-3.0); HEMATOCRIT 39.5 % (36.0-47.0); HEMOGLOBIN 11.9 g/dl (12.0-15.5); LYMPH # 1.7 10^3/uL (1.5-5.0); LYMPH % 24.5 % (24.0-44.0); MEAN CORPUSCULAR HEMOGLOBIN 23.8 pg (27.0-33.0); MEAN CORPUSCULAR HGB CONC 30.1 g/dl (32.0-36.5); MEAN CORPUSCULAR VOLUME 78.8 fl (80.0-96.0); MONO # 0.4 10^3/uL (0.0-0.8); MONO % 5.8 % (2.0-8.0); NEUTROPHILS # 4.5 10^3/uL (1.5-8.5); NEUTROPHILS % 66.3 % (36.0-66.0); PLATELET COUNT, AUTOMATED 296 10^3/uL (150-450); RED BLOOD COUNT 5.01 10^6/uL (4.00-5.40); WHITE BLOOD COUNT 6.9 10^3/uL (4.0-10.0)
[2023-06-02 13:48] LABS: HEMOGLOBIN A1c 5.5 % (4.0-6.0)
[2023-06-02 14:03] LABS: FOLLICLE STIMULATING HORMONE 3.6 mIU/ML
[2023-06-02 14:04] LABS: LUTEINIZING HORMONE 1.7 mIU/ML; PROGESTERONE 0.43 NG/ML
== END ==
LOC: M PLALAB 11:40
PROVIDERS: ATTEND Advanced Practice Midwife
DX: N91.1 Secondary amenorrhea (principal)

== ENCOUNTER → 2024-12-28 | Outpatient (REF) | payer OTHER ==
[2024-12-28 11:33] LABS: HEMATOCRIT 43.1 % (36.0-47.0); HEMOGLOBIN 13.3 g/dl (12.0-15.5); MEAN CORPUSCULAR HEMOGLOBIN 24.1 pg (27.0-33.0); MEAN CORPUSCULAR HGB CONC 30.9 g/dl (32.0-36.5); MEAN CORPUSCULAR VOLUME 78.2 fl (80.0-96.0); PLATELET COUNT, AUTOMATED 308 10^3/uL (150-450); RED BLOOD COUNT 5.51 10^6/uL (4.00-5.40); WHITE BLOOD COUNT 8.5 10^3/uL (4.0-10.0)
[2024-12-28 11:44] LABS: HEMOGLOBIN A1c 5.4 % (4.0-6.0)
[2024-12-28 11:59] LABS: PERCENT SATURATION 8.1 % (13.2-45.0)
[2024-12-28 12:00] LABS: FREE T4 0.81 NG/DL (0.89-1.76); THYROID STIMULATING HORMONE 20.867 uIU/ML (0.55-4.78)
[2024-12-28 12:01] LABS: FERRITIN 11.2 NG/ML (7.3-270.7)
[2024-12-28 12:02] LABS: ALBUMIN 3.9 G/DL (3.2-5.2); ALKALINE PHOSPHATASE 92 U/L (35-104); ALT/SGPT 14 U/L (7.0-40); AST/SGOT 14 U/L (<34); BILIRUBIN,TOTAL 0.3 MG/DL (0.3-1.2); BLOOD UREA NITROGEN 13 MG/DL (9-23); CALCIUM LEVEL 9.2 MG/DL (8.5-10.1); CARBON DIOXIDE LEVEL 26 MMOL/L (20-31); CHLORIDE LEVEL 106 MMOL/L (98-107); CHOLESTEROL LEVEL 188 MG/DL (<200); CHOLESTEROL RISK RATIO 3.82 (<5); CREATININE FOR GFR 0.73 MG/DL (0.55-1.30); GLOMERULAR FILTRATION RATE > 60.0 (>58); GLUCOSE, FASTING 89 MG/DL (60-100); HDL CHOLESTEROL 49.2 MG/DL (>40); LDL CHOLESTEROL 122.2 MG/DL (<100); NON-HDL-C 138.8 MG/DL; POTASSIUM SERUM 4.5 MMOL/L (3.5-5.1); SODIUM LEVEL 140 MMOL/L (136-145); TRIGLYCERIDES LEVEL 83 MG/DL (<150)
== END ==
LOC: M SFHCCLAY 08:57
PROVIDERS: ATTEND Physician Assistant
DX: Z00.00 Encounter for general adult medical examination without abnormal findings (principal); N92.1 Excessive and frequent menstruation with irregular cycle; E06.3 Autoimmune thyroiditis

== ENCOUNTER → 2025-01-12 | Outpatient (CLI) | payer OTHER | LOC: M WHC 13:17 | PROVIDERS: ATTEND Physician Assistant | DX: Z12.31 Encounter for screening mammogram for malignant neoplasm of breast (principal) ==

== ENCOUNTER → 2025-03-29 | Outpatient (REF) | payer OTHER ==
[2025-03-29 18:46] LABS: HEMATOCRIT 41.3 % (36.0-47.0); HEMOGLOBIN 12.4 g/dl (12.0-15.5); MEAN CORPUSCULAR HEMOGLOBIN 23.8 pg (27.0-33.0); MEAN CORPUSCULAR VOLUME 79.1 fl (80.0-96.0); PLATELET COUNT, AUTOMATED 281 10^3/uL (150-450); RED BLOOD COUNT 5.22 10^6/uL (4.00-5.40); WHITE BLOOD COUNT 8.3 10^3/uL (4.0-10.0)
[2025-03-29 18:52] LABS: FERRITIN 10.7 NG/ML (7.3-270.7); THYROID STIMULATING HORMONE 8.746 uIU/ML (0.55-4.78)
[2025-03-29 18:53] LABS: FREE T4 0.95 NG/DL (0.89-1.76)
[2025-03-29 18:57] LABS: PERCENT SATURATION 13.6 % (13.2-45.0)
== END ==
LOC: M SFHCCLAY 10:59
PROVIDERS: ATTEND Physician Assistant
DX: E06.3 Autoimmune thyroiditis (principal); E61.1 Iron deficiency

== ENCOUNTER → 2025-05-31 | Outpatient (REF) | payer OTHER ==
[2025-05-31 13:33] LABS: FREE T4 0.85 NG/DL (0.89-1.76)
== END ==
LOC: M SFHCCLAY 09:20
PROVIDERS: ATTEND Physician Assistant
DX: E06.3 Autoimmune thyroiditis (principal)

== ENCOUNTER → 2025-06-28 | Outpatient (REF) | payer OTHER ==
[2025-06-28 18:42] LABS: FREE T4 1.01 NG/DL (0.89-1.76)
== END ==
LOC: M SFHCCLAY 09:39
PROVIDERS: ATTEND Physician Assistant
DX: E06.3 Autoimmune thyroiditis (principal)